=== PATIENT | female | born 1940 | race Caucasian/White ===

== ENCOUNTER → 2018-06-19 08:55 | Outpatient (REF) | payer MEDICARE, SELFPAY ==
[2018-06-19 12:32] LABS: HCT 42.6 % (36.0-46.0); HGB 14.2 g/dL (12.0-15.5); Mean Corp. HGB Concentration 33.3 g/dL (32.0-36.0); Mean Corpuscular Hemoglobin 30.5 pg (27.0-33.0); Mean Corpuscular Volume 91.4 fL (80-95); Mean Platelet Volume 11.3 fL (8.0-11.0); Platelet Count 159 x1000/uL (130-400); RBC 4.66 m/cumm (4.00-5.20); RBC Distribution Width 14.6 % (11.7-14.6); White Blood Cell Count 5.68 k/cumm (4.4-10.8)
[2018-06-19 12:52] LABS: ALT 18 U/L (12-78); AST 15 U/L (15-37); Albumin 3.5 g/dL (3.4-5.0); Alkaline Phosphatase 98 U/L (46-116); Anion Gap 8.6 mmol/L (3-11); BUN 18 mg/dL (7-18); Bilirubin, Total 1.8 mg/dL (0.2-1.0); CO2 28.4 mmol/L (21.0-32.0); CREATININE 0.76 mg/dL (0.55-1.02); Calcium 8.6 mg/dL (8.5-10.1); Chloride 103 mmol/L (98-107); Cholesterol 207 mg/dL (50-200); Glucose 93 mg/dL (70-100); HDL Cholesterol 63 mg/dL (40-60); LDL CHOLESTEROL 136 mg/dL (<100); Potassium 3.9 mmol/L (3.5-5.1); Sodium 140 mmol/L (136-145); Triglyceride 70 mg/dL (30-150)
[2018-06-20 20:19] LABS: TSH (W/Ref FT4) 2.02 uIU/mL (0.358-3.74)
== END ==
LOC: NCHCN 08:55
PROVIDERS: PCP Family Medicine; Visit Provider Family Medicine
DX: I10 Essential (primary) hypertension (principal); R40.0 Somnolence; J45.909 Unspecified asthma, uncomplicated; K21.9 Gastro-esophageal reflux disease without esophagitis; E03.9 Hypothyroidism, unspecified
CPT/HCPCS: 80053; 80061; 83721; 85027; 84443

== ENCOUNTER 2018-09-30 12:53 | Outpatient (REF) | payer MEDICARE, SELFPAY ==
[2018-09-30 13:37] LABS: ALT 16 U/L (12-78); AST 14 U/L (15-37); Albumin 3.6 g/dL (3.4-5.0); Alkaline Phosphatase 95 U/L (46-116); Anion Gap 7.1 mmol/L (3-11); BUN 18 mg/dL (7-18); Bilirubin, Total 1.8 mg/dL (0.2-1.0); CO2 31.9 mmol/L (21.0-32.0); CREATININE 0.76 mg/dL (0.55-1.02); Calcium 9.5 mg/dL (8.5-10.1); Chloride 103 mmol/L (98-107); Glucose 102 mg/dL (70-100); Potassium 4.1 mmol/L (3.5-5.1); Sodium 142 mmol/L (136-145); Total Protein 6.4 g/dL (6.4-8.2)
== END 2018-09-30 13:13 ==
LOC: NCHCN 12:53
PROVIDERS: PCP Family Medicine; Visit Provider Family Medicine
DX: L57.0 Actinic keratosis (principal); R41.3 Other amnesia; I10 Essential (primary) hypertension; Z13.820 Encounter for screening for osteoporosis
CPT/HCPCS: 80053

== ENCOUNTER 2018-12-03 00:25 | Outpatient (CLI) | payer MEDICARE, SELFPAY ==
--- NOTE | 2018-12-03 02:30 | DI.DEXA_ITS ---
SYMPTOM/DIAGNOSIS: OSTEOPENIA, M85.88, SCREENING FOR OSTEOPOROSIS, Z78 IN POSTMENOPAUSAL WOMAN DEXA SCAN: The MIGUEL A image shows no evidence of compression fractures. The bone mineral density measurements of the lumbar spine correspond to a total T score of -1.1, in adan normal range. This is a 9.8% increase when compared with 2009 and a 4.4% increase when compared with 2005. The bone mineral density measurements of the left hip correspond to a total T score of -2.0 and a femoral neck T score of - 1.8, in the osteopenic range. This is a 4.8% decrease when compared with 2009. The bone mineral density measurements of the left forearm correspond to a total T score of -2.1, in the osteopenic range. The forearm was not analyzed on the previous exams. IMPRESSION: Normal bone mineral density with increase when compared with previous exams. The findings could be in part secondary to degenerative disc changes. Mild osteopenia of the left hip with mild decrease. Osteopenia of the forearm.
== END 2018-12-03 00:45 ==
PROVIDERS: PCP Family Medicine; Visit Provider Family Medicine
DX: M85.88 Other specified disorders of bone density and structure, other site (principal); Z78.0 Asymptomatic menopausal state
CPT/HCPCS: 77080

== ENCOUNTER 2019-01-21 01:10 | Outpatient (CLI) | payer MEDICARE, SELFPAY ==
--- NOTE | 2019-01-21 14:07 | DI.COMBO_ITS ---
SYMPTOM/DIAGNOSIS: LT BREAST LUMP, N63.0, F/U MAMMO, R92.8 MAMMOGRAMS AND LEFT BREAST ULTRASOUND: Mammograms were interpreted according to the usual protocol including computer analysis with CAD system, tomosynthesis and C view imaging. Comparison is made with previous mammograms and ultrasound. The breasts are composed of heterogeneously dense fibroglandular tissue. Breast density, Category C. A marker was placed in the lateral left breast in the area of the palpable abnormality. A region of fatty density is seen corresponding to the palpable abnormality on the mammogram. There are no suspicious masses or suspicious calcifications or changes from previous exams. Left breast ultrasound shows an ovoid, 4.5 by 1.2 by 2.8 cm. fatty echogenicity area corresponding to the palpable abnormality. No cysts or suspicious masses are seen. IMPRESSION: Category 2, negative mammogram and left breast ultrasound with benign findings of fatty tissue corresponding to the palpable abnormality in the lateral aspect of the breast. Yearly screening mammography is recommended. SA ASSESSMENT OF FINDINGS: Negative with benign findings. Category 2. Patient will receive a letter notifying them of these results. Bi-RADS category C. The breasts are heterogeneously dense, which may obscure small masses.
== END 2019-01-21 01:30 ==
PROVIDERS: PCP Family Medicine; Visit Provider Family Medicine
DX: N63.20 Unspecified lump in the left breast, unspecified quadrant (principal); R92.8 Other abnormal and inconclusive findings on diagnostic imaging of breast; N60.82 Other benign mammary dysplasias of left breast
CPT/HCPCS: 76642; 77062; 77066; G0279

== ENCOUNTER 2019-02-20 22:09 | Emergency (ER) | payer MEDICARE, SELFPAY ==
[2019-02-20] VITALS (12 sets, daily range): BP systolic 163–234; BP diastolic 74–107; PULSE 69–86; RESP 15–22; TEMP 37.1; O2SAT 94–97
--- NOTE | 2019-02-20 22:29 | ED.GENADUL_ITS ---
Discharge Plan Disposition Patient Disposition: HOME Condition: Stable Discharge Details Chief Complaint: Chest Pain Clinical Impression: Left-sided chest pain Primary Care Provider: Roseann Sainz ED Provider: Carlos Felix Home Meds and New Rx's Prescriptions: New oxycodone 5 mg tablet 5 mg PO DAILY PRN (Reason: pain) Qty: 12 RF: 0 acyclovir 800 mg tablet 800 mg PO Q4H 7 Days Qty: 42 RF: 0 No Action latanoprost 2.5 ML drops 1 drp OU HS RF: 0 Simbrinza 8 ML drops,suspension 1 drp OD BID RF: 0 citalopram [Celexa] 20 MG tablet 20 mg PO HS Qty: 90 RF: 12 losartan 100 MG tablet 100 mg PO DAILY Qty: 90 RF: 12 clonazepam 0.5 MG tablet 0.5 tab PO BID PRNQty: 180 RF: 5 fluticasone propionate 16 GM spray,suspension 2 spr NS DAILY Qty: 1 RF: 1 levothyroxine 75 MCG tablet 75 mcg PO DAILY Qty: 90 RF: 12 dorzolamide [Trusopt] 10 ML drops 1 drp OD BID RF: 0 timolol maleate 0.5 % Drops 1 drp ophthalmic (eye) BID RF: 0 Discharge Instructions Instructions: Chest Pain (ED) Additional Instructions: Your lab work and cat scan did not show any emergent findings. You did have some inflammation of the esophagus on the cat scan, you should make your primary care provider aware of the cat scan findings when you follow up in case you need additional outpatient testing. You should also have your blood pressure rechecked at this time as it was elevated while you were here Where you were having pain was a small area of redness. This could be from early shingles so we are starting you on treatment for this IF you have severe worsening pain or difficulty breathing, or new pain such as severe abdominal pain return to the emergency department Medical Decision Making 78 yo female with no known cardiac disease comes in with left sided chest pain and back pain since 1pm or so today. She denies any trauma or falls. She denies fevers, chills. She is in no distress on exam speaking in full sentences. Does have pain with palpation to the left chest and describes the past in the t9 dermatome. She has clear lungs, no evidnece of dvt on exam and no pitting edema. She denies pain with exertion. She is a former smoker. She has a heart score of 3 based on age and risk factors, will obtain troponin, ekg unchanged from prior. No tachycardia or hypoxia and no evidence of dvt so doubt PE. Will obtain CTA given the chest and back pain to eval for dissection The pain is in a dermatome but no rash, could be eraly shingles but will evaluate for more life threatening pathology pt remains stable, labs and imaging show no acute findings, has nonacute findings she was informed of and advised to f/u with pcp for. Does have small perciardial effusion vs thickening of pericardium, clinical hx doesn't fit with pericarditis. She has point tenderness in the t9 dermatome and now hasa 3x4cm maculopapular rash in the mid axillary line. No vesicles. Unclear if this is early shingles but seems likely, has no abdominal tenderness on exam. Do not feel further imaging or lab work inidcated, advised f/u wtih pcp and return precautions given Differential Diagnosis acs, dissection, ptx, pe, chest wall strain Medical Records Medical records reviewed: Yes I reviewed the patient's medical records. Imaging Data Radiologic Study: Attestation: I personally reviewed and interpreted this imaging study as follows: Imaging: CT Scan Radiologist's impression: IMPRESSION: 1. There is heterogeneous attenuation of the pulmonary parenchyma, consistent with air trapping from underlying small airways disease. 2. The aorta demonstrates mild atherosclerotic calcification.No evidence of aortic dissection or aneurysmal dilatation. 3. There is no evidence of filling defects within the pulmonary arterial circulation to suggest pulmonary embolism. 4. Tiny pericardial effusion versus pericardial thickening. 5. The distal esophagus appears thickened. Consider infiltration versus inflammatory changes. Lab Data Lab results reviewed: Yes I reviewed the patient's lab results. ECG Data Attestation: I personally reviewed and interpreted this ECG (s) as follows: Prior ECG tracings: available for review Interpretation: sinus rhythm, rate of 71, pr 136, no acute st t wave ischemic findings 2nd ekg shows no significant changes from first , sinus rhythm, rate of 77, pr 140 HPI General Mode of arrival: ambulatory . Date/Time Provider Initiated Documentation: 02/20/19 22:17 . Limitations to Documentation: no limitations . Information obtained by: patient . History of Present Illness 78 year old F presents to the emergency department with the chief complaint of left sided chest pain , described as moderate, with intensity rated at 5. Quality is described as aching, and is localized to the chest. Patient started experiencing this hour(s) (7) and it has been constant. No relieving factors improve symptom(s), No exacerbating factors reported . Patient notes other (back pain). Patient did receive the following treatments prior to arrival, none Related Data Home Medications Medication Instructions Recorded Confirmed latanoprost 1 drp OU HS drp 01/27/13 02/20/19 Simbrinza 1 drp OD BID 01/06/16 02/20/19 dorzolamide [Trusopt 2%] 1 drp OD BID 08/29/16 02/20/19 citalopram [Celexa] 20 mg PO HS #90 tab-cap 06/11/17 02/20/19 losartan 100 mg PO DAILY #90 tab-cap 07/24/17 02/20/19 clonazepam 0.5 tab PO BID PRN #180 tab-cap 10/08/17 02/20/19 fluticasone propionate 2 spr NS DAILY #1 inh 10/18/17 02/20/19 levothyroxine 75 mcg PO DAILY #90 tab-cap 11/06/17 02/20/19 timolol maleate 1 drp OPHTHALMIC (EYE) BID 02/20/19 02/20/19 acyclovir 800 mg PO Q4H 7 Days #42 tab 02/21/19 oxycodone 5 mg PO DAILY PRN #12 tab 02/21/19 Previous Rx's Medication Instructions Recorded fluticasone propionate 2 spr NS DAILY #1 inh 10/18/17 levothyroxine 75 mcg PO DAILY #90 tab-cap 11/06/17 acyclovir 800 mg PO Q4H 7 Days #42 tab 02/21/19 oxycodone 5 mg PO DAILY PRN #12 tab 02/21/19 Allergies Allergy/AdvReac Type Severity Reaction Status Date / Time Penicillins Allergy Severe Anaphalaxis Unverified 02/28/18 10:25 codeine AdvReac Hallucinati Unverified 02/28/18 10:25 ons lisinopril AdvReac Cough Unverified 02/28/18 10:25 morphine AdvReac pt doesn't Unverified 02/28/18 10:25 tolerate well Review of Systems Review of Systems All systems reviewed & are unremarkable except as noted in HPI and below Constitutional Denies chills, Denies fever(s) and Denies weakness Respiratory Denies cough Gastrointestinal Denies abdominal pain, Denies nausea and Denies vomiting Neurologic Denies weakness PFSH Medical History Anxiety Asthma GERD (gastroesophageal reflux disease) Hyperlipidemia Hypertension Hypothyroidism Surgical History Biopsy of breast (~1999) Cholecystectomy EGD - MAC (~2004) Fracture, Open Treatment (~12/2006) Hysterectomy, Laproscopic (~1989) Oophrectomy, Both Repair of inguinal hernia Family History Mother Essential hypertension Personal history of malignant neoplasm Father Depression Heart disease Sister Diabetes Essential hypertension Alzheimer disease Asthma Grandfather No problems noted. Grandfather Asthma Grandmother No problems noted. Grandmother No problems noted. Son No problems noted. Daughter Neoplasm Daughter Depression Social History Smoking/Tobacco Use Status: Former Tobacco Use Drug use: Never Do you feel safe at home: Yes Do you feel safe in your relationship?: Yes Exam Const General: no acute distress Orientation: alert HENMT Head: normal to inspection Ears: external ears normal General nose exam: external nose normal Mouth: moist mucous membranes Eyes General: appearance normal, both eyes and all related structures Neck Neck: normal visual inspection Chest Chest: normal inspection of the chest Resp Effort & Inspection: normal respiratory effort and able to speak in complete sentences Cardio Rate: regular rate Skin General skin exam: no rashes or lesions noted Neuro General: alert and oriented x3 Extrem General: normal to inspection Psych Mental Status: mental status grossly normal
[2019-02-20 22:41] LABS: Abs Immature Grans 0.02 k/cumm (0.0-0.09); Absolute Basophil Count 0.04 k/cumm (0.0-0.2); Absolute Eosinophil Count 0.29 k/cumm (0.0-0.7); Absolute Lymphocyte Count 1.99 k/cumm (1.2-3.4); Absolute Monocyte Count 0.74 k/cumm (0.11-0.7); Absolute Neutrophil Count 5.97 k/cumm (1.2-6.7); Basophils % 0.4; Eosinophils % 3.2; HCT 43.8 % (36.0-46.0); HGB 14.6 g/dL (12.0-15.5); Immature Grans % 0.2; Mean Corp. HGB Concentration 33.3 g/dL (32.0-36.0); Mean Corpuscular Hemoglobin 30.4 pg (27.0-33.0); Mean Corpuscular Volume 91.3 fL (80-95); Mean Platelet Volume 10.6 fL (8.0-11.0); Monocytes % 8.2; Platelet Count 154 x1000/uL (130-400); RBC Distribution Width 14.8 % (11.7-14.6); White Blood Cell Count 9.05 k/cumm (4.4-10.8)
[2019-02-20] MEDS: Normal Saline Flush 10 ML SYR IVP (22:41)
[2019-02-20] MEDS: Aspirin 81 MG CHEW 324 MG CH (22:41)
[2019-02-20 22:56] LABS: INR 0.9 (0.9-1.1); PTT Activated 22.2 sec (21.0-31.4); Prothrombin Time 9.4 sec (9.3-11.0)
[2019-02-20 22:57] LABS: ALT 16 U/L (12-78); AST 12 U/L (15-37); Albumin 3.5 g/dL (3.4-5.0); Alkaline Phosphatase 111 U/L (46-116); Bilirubin, Direct 0.21 mg/dL (0.00-0.20); Bilirubin, Total 1.1 mg/dL (0.2-1.0); Lipase 148 U/L (73-393); Total Protein 6.8 g/dL (6.4-8.2)
[2019-02-20 22:58] LABS: Troponin I < 0.02 ng/mL (0.00-0.06)
--- NOTE | 2019-02-20 23:15 | DI.CT_ITS ---
SYMPTOM/DIAGNOSIS: CHEST AND BACK PAIN, ? DISSECTION CTA CHEST: CT angiography was performed with multi slice acquisition and multi planar and 3D reconstruction. CT angiography of the chest was performed with a bolus infusion of 100 cc's of Omnipaque 350. Images obtained through the upper abdomen show prior cholecystectomy with unremarkable appearance of visualized portions of liver, spleen, pancreas, adrenals and kidneys. There is atheromatous calcification of the aorta. No aortic dissection or aneurysm. Major branches appear patent in the chest and upper abdomen. No evidence of pulmonary embolic disease. No mediastinal or hilar adenopathy. Lungs are clear with probable diffuse centrilobular emphysema. Trace left pleural effusion noted. Trace pericardial effusion versus pericardial thickening. Minimal left basilar pulmonary scarring noted. Question mild thickening of the wall of the distal esophagus. Please correlate clinically, endoscopic evaluation could be obtained if clinically indicated. CONCLUSION: No evidence of acute aortic dissection or aneurysm. No pulmonary embolic disease. Additional findings as noted above.
[2019-02-20] MEDS: Omnipaque 350 MG/ML 100 ML BTL IJ (23:21)
[2019-02-20] MEDS: oxyCODONE 5 MG TAB PO (23:45)
[2019-02-21] VITALS: PULSE 73; RESP 15; O2SAT 96
[2019-02-21 00:01] VITALS: BP 205/79; PULSE 71; PULSE 74; RESP 16; O2SAT 96
[2019-02-21 00:04] LABS: Troponin I < 0.02 ng/mL (0.00-0.06)
--- NOTE | 2019-02-21 00:09 | DI.VRAD_ITS ---
EXAM: CT Angiography Chest With Contrast EXAM DATE/TIME: 02/20/2019 10:25 PM CLINICAL HISTORY: 78 years old, female; Pain; Chest pain and other: Chest and back; Type not specified; Additional info: ? Dissection TECHNIQUE: Imaging protocol: Axial computed tomographic angiography images of the chest with intravenous contrast using CT angiography protocol. 3D rendering: MIP reconstructed images were created and reviewed. Radiation optimization: All CT scans at this facility use at least one of these dose optimization techniques: automated exposure control; mA and/or kV adjustment per patient size (includes targeted exams where dose is matched to clinical indication); or iterative reconstruction. Contrast material: [id number] Contrast volume: 100 ml Contrast route: iv COMPARISON: CR CHEST 2 VIEWS PA,LAT 05/01/2017 2:53 PM FINDINGS: Pulmonary arteries: There is no evidence of filling defects within the pulmonary arterial circulation to suggest pulmonary embolism. The pulmonary arteries are not enlarged. Aorta: The aorta demonstrates mild atherosclerotic calcification.No evidence of aortic dissection or aneurysmal dilatation. Lungs: There is heterogeneous attenuation of the pulmonary parenchyma, consistent with air trapping from underlying small airways disease. Left lobe atelectasis versus scarring. Possible small diaphragmatic hernia seen at the left costophrenic angle. Pleural space: There is no evidence of pneumothorax. There are no pleural effusions present. Heart: There is moderate left ventricular hypertrophy. Tiny pericardial effusion versus pericardial thickening. Mediastinum: A small hiatal hernia is present. The distal esophagus appears thickened. Consider infiltration versus inflammatory changes. Upper abdomen: The visualized abdominal structures are unremarkable. Lymph nodes: There is no evidence of lymphadenopathy. Bones/joints: The skeletal structures and soft tissues show no evidence of fracture or other acute processes. Soft tissues: The soft tissues of the extrathoracic region are unremarkable. IMPRESSION: 1. There is heterogeneous attenuation of the pulmonary parenchyma, consistent with air trapping from underlying small airways disease. 2. The aorta demonstrates mild atherosclerotic calcification.No evidence of aortic dissection or aneurysmal dilatation. 3. There is no evidence of filling defects within the pulmonary arterial circulation to suggest pulmonary embolism. 4. Tiny pericardial effusion versus pericardial thickening. 5. The distal esophagus appears thickened. Consider infiltration versus inflammatory changes. Dictated and Authenticated by: Niko Mak MD. Ordering:UMU Gonzalez MD
[2019-02-21 00:10] VITALS: PULSE 72; RESP 14; O2SAT 94
[2019-02-21 00:16] VITALS: BP 193/84; PULSE 71; PULSE 75; RESP 15; O2SAT 94
[2019-02-21] MEDS: Acyclovir 400 MG TAB 800 MG PO (00:35)
[2019-02-21] MEDS: oxyCODONE 5 MG TAB PO (00:46)
[2019-02-21 00:48] VITALS: BP 205/79; PULSE 71; RESP 14; O2SAT 94
== END 2019-02-21 00:45 | disposition home or self-care (01) ==
PROVIDERS: Emergency Provider Emergency Medicine; PCP Family Medicine
DX: R07.89 Other chest pain (principal); M54.9 Dorsalgia, unspecified; I10 Essential (primary) hypertension
CPT/HCPCS: 36415; 71275; 80076; 83690; 93005; 96374; 99285; 83735; 84484; 85025; 85610; 85730; 93010; J3490

== ENCOUNTER → 2019-03-07 08:59 | Outpatient (BNVA) | payer MEDICARE, SELFPAY | PROVIDERS: PCP Family Medicine; Referring Provider Family Medicine; Visit Provider Physical Therapy Assistant | DX: R93.89 Abnormal findings on diagnostic imaging of other specified body structures (principal); I10 Essential (primary) hypertension; Z12.11 Encounter for screening for malignant neoplasm of colon; Z86.010 Personal history of colon polyps | CPT/HCPCS: 99212; 99213 ==

== ENCOUNTER 2019-04-08 06:10 | Day surgery (SDC) | payer MEDICARE, SELFPAY ==
[2019-04-08 06:36] VITALS: BP 179/96; PULSE 93; RESP 16; TEMP 36.2; O2SAT 96
[2019-04-08] MEDS: Lactated Ringers 1,000 ML 80 ML IV (06:42)
--- NOTE | 2019-04-08 06:43 | W.COLOREPORT ---
Date of service: 04/08/19 Time of Service: 08:32 Colonoscopy Report Date of procedure: 04/08/19 Pre-op diagnosis general: Hx of polyps, abnormal CT scan Post-op diagnosis procedure note: other (Gastritis, esophagitis with schatzki's ring, colorectal polyps, internal hemorrhoids, diverticulosis) Procedure: 1. EGD with bx 2. Colonoscopy with polypectomy Surgeon: Montserrat Candelario Anesthesia proc note operative: other (General/ ASA2 /Miranda Louis, CONTENT MANAGEMENT SPECIALIST ) Estimated blood loss (mL): 5 Pathology: other (Antrum bx, gastric polyp bx, GE junction bx, rectal polyp x5) Complications: None Disposition: same day Indications: Mrs. Castle is a pleasant 78-year-old female who was seen in the office for an EGD and colonoscopy. Her last colonoscopy was in 2012 and she was noted to have a tubular adenoma. It was done at [facility]. She was seen in the emergency department for some chest/back pain and a CT scan of her chest was done. The CT scan showed some thickening around the distal esophagus. The patient denies any reflux or heartburn type symptoms. Her last EGD was in 2008 which was pretty unremarkable. She has not been on any PPIs or H2 blockers in the past. Risks, benefits and complications have been reviewed. Complications include but are not limited to bleeding, pain, perforation, missed small lesion/polyp, sore throat, aspiration and adverse reaction to the medications. Questions were entertained and answered to their satisfaction and they wished to proceed. No guarantees were given or implied. Prep: Miralax/Dulcolax Procedure Start Time: 08:32 Procedure End Time: 09:26 Retraction Time: 24 minutes Findings: EGD- gastric polyps most likely from chronic inflammation. There was some old blood noted. Inflammation of the stomach and esophagus with a schatzki's ring Colonoscopy- mild diverticulosis, Grade 1 internal hemorrhoids, 5 rectal polyps (benign appearing) Procedure Description: After informed consent was obtained the patient was take to the procedure room and placed in a supine position. Monitors were applied and a time out was done. The patients name, date of , procedure type, allergies to medications and metal in their body was reviewed. A bite block was placed and the patient was sedated. Once sedated and comfortable the gastroscope was advanced through the oropharynx which was grossly normal into the esophagus. The proximal and mid-esophagus were normal. In the distal esophagus there was inflammation noted and there was a schatzki's ring noted. The scope was advanced into the stomach and through the pylorus into the 3rd portion of the duodenum. The duodenum was noted to be normal. The scope was retracted back into the stomach and biopsies were done in the antrum to rule out H. pylori. There were no ulcers. There was moderate inflammation in the antrum and body. Multiple fundic polyps were noted and 2 were biopsied. The scope was retro-flexed. The cardia and fundus were noted to be normal. There was no hiatal hernia noted. The scope was retracted back into the esophagus and biopsies were done of the GE junction to rule out Nicholas's. The Z line was regular. The GE junction was at 32 cm. There was a Schatzki's ring noted. While the patient was still sedated they were placed in a left decubitous position. A rectal exam was done. External exam was normal. Internal exam revealed a normal sphincter tone and no palpable masses. The scope was then introduced and retro-flexed. Grade 1 internal hemorrhoids were identified. The scope was then advanced to the cecum with some difficulty. Pressure had to be applied to the abdomen in order to advance the scope to the cecum. The TI and appendiceal orifice were identified. The prep was good. The scope was then slowly retracted over 24 minutes back into the rectum. 5 small sessile polyps were removed with cold forceps in the rectum. The scope was removed and the patient was woken up and taken back to Same day surgery in stable condition. The patient tolerated the procedure well and there were no immediate complications. Follow up: Will start Omeprazole 20 mg daily. Follow up with PCP in 2-3 weeks. Next colonoscopy will depends on final pathology results as well as Patients health.
--- NOTE | 2019-04-08 06:46 | W.PM.DSUDISC ---
Discharge Plan Disposition Patient Disposition: HOME Condition: Good Discharge Details Reason For Visit: Abnormal CT scan, Hx of polyps Attending Provider: Montserrat Candelario Primary Care Provider: Roseann Sainz Home Meds and New Rx's Prescriptions: New omeprazole 20 mg capsule,delayed release(DR/EC) 20 mg PO DAILY Qty: 30 RF: 3 Continued latanoprost 2.5 ML drops 1 drp OU HS RF: 0 Simbrinza 8 ML drops,suspension 1 drp OD BID RF: 0 citalopram [Celexa] 20 MG tablet 20 mg PO HS Qty: 90 RF: 12 losartan 100 MG tablet 100 mg PO DAILY Qty: 90 RF: 12 clonazepam 0.5 MG tablet 0.5 tab PO BID PRNQty: 180 RF: 5 levothyroxine 75 MCG tablet 75 mcg PO DAILY Qty: 90 RF: 12 dorzolamide [Trusopt] 10 ML drops 1 drp OD BID RF: 0 timolol maleate 0.5 % Drops 1 drp ophthalmic (eye) BID RF: 0 donepezil 5 mg Tablet 5 mg PO DAILY RF: 0 Discontinued polyethylene glycol 3350 17 gram/dose powder 238 g PO ONCE Qty: 238 RF: 0 bisacodyl [Dulcolax (bisacodyl)] 5 mg tablet,delayed release (DR/EC) 5 mg PO ONCE Qty: 4 RF: 0 Discharge Instructions Instructions: Gastritis (DC), Colonoscopy (DC), Diet for Stomach Ulcers and Gastritis (GEN), Upper Endoscopy (DC), Esophagitis (DC) Additional Instructions: Findings: Inflammation of the stomach and esophagus with scarring in the esophagus Gastric polyps- benign most likely secondary to chronic inflammation Benign appearing colon polyps Diverticulosis Internal hemorrhoids Follow up:follow up with your Primary Care Physician in 2-3 weeks Please call if you develop: fevers >101.5 Nausea or Vomiting Abdominal pain that is not transient DAY SURGERY UNIT POST COLONOSCOPY INSTRUCTIONS 1. Because there will be medication in your system for the next 24 hours, you may feel a little sleepy. Your coordination will be affected. Therefore: a. Do not drive or operate dangerous equipment for 24 hours. b. Do not drink alcohol beverages for 24 hours (not even beer). c. Plan to go home and rest for the day. 2. Generally there are no restrictions on your activity after a day or so has gone by, but you may feel a bit fatigued for a few days. 3 After you arrive home you may have a light meal and return to a normal diet as you can tolerate it without feeling sick to your stomach. 4. After surgery, you may feel pain or discomfort. This should be only transient, but if it persists please contact your doctor. 5. If there are any questions regarding the findings of your procedure, please feel free to contact your doctor. 6. If you are unable to contact your doctor with a problem, contact the hospital at [phone]. 7. Continue all your regular medications unless directed otherwise. I understand the above instructions and have no questions. Signature of Patient or Responsible Adult Escort Date/Time Name of Responsible Adult Escort Signature of Nurse Date/Time Referrals: Roseann Sainz [Primary Care Provider] - (2-3 weeks) Activity:: Activity as Tolerated Diet:: As Tolerated Discharge Orders Discharge Orders: Discharge Order (Routine); Ordered 04/08/19 Ordered By: Montserrat Candelario DS: Diagnosis Discharge Diagnosis (1) S/P colonoscopy: Status: Acute (2) History of esophagogastroduodenoscopy (EGD): Status: Chronic (3) Colorectal polyps: Status: Acute (4) Schatzki's ring of distal esophagus: Status: Acute (5) Esophagitis: Status: Acute (6) Gastritis: Status: Acute
--- NOTE | 2019-04-08 07:22 | HPE_ITS ---
Date of service: 04/08/19 Time of Service: :22 Assessment and Plan (1) Esophageal thickening: Current visit: No Status: Acute P\\ EGd under sedation Risks, benefits and complications have been reviewed. Complications include but are not limited to bleeding, pain, perforation, sore throat, aspiration, and adverse reaction to the medications. Questions were entertained and answered to their satisfaction and they wished to proceed. No guarantees were given or implied. (2) Encounter for screening colonoscopy: Current visit: No Status: Acute P\\ Colonoscopy under sedation Risks, benefits and complications have been reviewed. Complications include but are not limited to bleeding, pain, perforation, missed small lesion/polyp, sore throat, aspiration and adverse reaction to the medications. Questions were entertained and answered to their satisfaction and they wished to proceed. No guarantees were given or implied. History of Present Illness Narrative: 77 y/o female with history of HTN and hypothyroidism presents for colonoscopy screening pre-op. His last screening was in 2012 at [facility], which was remarkable for tubular adenoma, with 5 yr f/u recommended. She denies a family history of colon cancer. She denies any changes in bowel habits including bloody or black tarry stools, abdominal pain, diarrhea or constipation. She denies constitutional symptoms. Denies use of marijuana or any other recreational or illegal drugs. She was seen in the ED on 02/21/19 for complaints of Chest and Back pain- CT scan showed mild thickening of the wall of the distal esophagus, no evidence of acute aortic dissection or aneurysm. No pulmonary embolic disease. Last EGD was in 2008 which showed mild chronic gastritis, mild reflux esophagitis. She has no been on any H2 blockers or PPI for this. Her chest pain was non-cardiac and has since resolved. She denies chest pain, palpitations, dyspnea or dyspnea with exertion. She denies prior history or family history of adverse reactions or complications with anesthesia. There have been no changes in her health since she was seen in the office [facility] Medical History Dysthymic disorder (Acute) Lumbar radiculopathy (Acute) Neoplasm of skin (Acute) Glaucoma (Chronic) Anxiety Asthma GERD (gastroesophageal reflux disease) Hyperlipidemia Hypertension Hypothyroidism Surgical History S/P colonoscopy (Acute ~04/08/19) Biopsy of breast (~1999) Cholecystectomy EGD - MAC (~2004) Fracture, Open Treatment (~12/2006) Hysterectomy, Laproscopic (~1989) Oophrectomy, Both Repair of inguinal hernia Family History Mother Essential hypertension Personal history of malignant neoplasm Father Depression Heart disease Sister Diabetes Essential hypertension Alzheimer disease Asthma Grandfather No problems noted. Grandfather Asthma Grandmother No problems noted. Grandmother No problems noted. Son No problems noted. Daughter Neoplasm Daughter Depression Social History Smoking/Tobacco Use Status: Former Tobacco Use Alcohol Intake: never Drug use: Never Substance use type: does not use Do you feel safe at home: Yes Do you feel safe in your relationship?: Yes Meds Home Medications Medication Instructions Recorded Confirmed Type latanoprost 1 drp OU HS drp 01/27/13 04/03/19 History Simbrinza 1 drp OD BID 01/06/16 04/03/19 History dorzolamide [Trusopt 2%] 1 drp OD BID 08/29/16 04/08/19 History citalopram [Celexa] 20 mg PO HS #90 tab-cap 06/11/17 04/03/19 History losartan 100 mg PO DAILY #90 tab-cap 07/24/17 04/03/19 History clonazepam 0.5 tab PO BID PRN #180 tab-cap 10/08/17 04/03/19 History levothyroxine 75 mcg PO DAILY #90 tab-cap 11/06/17 04/03/19 Rx timolol maleate 1 drp OPHTHALMIC (EYE) BID 02/20/19 04/03/19 History bisacodyl 5 mg tablet,delayed 5 mg PO ONCE #4 tab 03/07/19 04/08/19 Rx release polyethylene glycol 3350 17 238 g PO ONCE #238 gm 03/07/19 04/08/19 Rx gram/dose oral powder donepezil 5 mg PO DAILY 04/08/19 04/08/19 History Allergies Allergy/AdvReac Type Severity Reaction Status Date / Time Penicillins Allergy Severe Anaphalaxis Unverified 04/08/19 06:29 codeine AdvReac Hallucinati Unverified 04/08/19 06:29 ons lisinopril AdvReac Cough Unverified 04/08/19 06:29 morphine AdvReac pt doesn't Unverified 04/08/19 06:29 tolerate well Exam Resp Effort & Inspection: normal respiratory effort Auscultation: clear to auscultation bilaterally Cardio Rate: regular rate Rhythm: regular rhythm Results Last Vital Signs Temp 97.2 F L 04/08/19 06:36 Pulse 93 H 04/08/19 06:36 Resp 16 04/08/19 06:36 BP 179/96 H 04/08/19 06:36 Pulse Ox 96 04/08/19 06:36
--- NOTE | 2019-04-08 08:34 | STOM_PTH ---
PATIENT: Lucila Castle LOC: [facility] U#:[id number] AGE/SX: 78/F ROOM: RE04/08/[address]: Montserrat Candelario MD : [id number] BED: DIS: 04/08/2019 SPEC #: [id number] RECD: 04/08/19 12:45 STATUS: BEATRIZ RE #: [id number] SIDRA: 04/08/19 08:[address]: Montserrat Candelario DEPT: Surgical Specimen RECD BY: Rina Mcmanus ENTERED: 04/08/19 12:46 SP TYPE: STOMACH OTHR DR: Roseann Sainz Tissues: 1 - STOMACH BIOPSY 2 - STOMACH BIOPSY 3 - ESOPHAGUS BIOPSY 4 - BIOPSY BOWEL Procedures: GROSS AND MICRO LEVEL 4 Comments: [id number]
[2019-04-08 10:28] VITALS: BP 180/91; PULSE 65; RESP 16; TEMP 35.8; O2SAT 94
== END 2019-04-08 11:12 | disposition home or self-care (01) ==
PROVIDERS: PCP Family Medicine; Visit Provider Surgery
PROC: (CPT 45380; principal; 2019-04-08 08:15)
DX: Z12.11 Encounter for screening for malignant neoplasm of colon (principal); K62.1 Rectal polyp; K64.0 First degree hemorrhoids; K57.30 Diverticulosis of large intestine without perforation or abscess without bleeding; Z86.010 Personal history of colon polyps; R93.3 Abnormal findings on diagnostic imaging of other parts of digestive tract; K31.89 Other diseases of stomach and duodenum; K31.7 Polyp of stomach and duodenum; K22.2 Esophageal obstruction; I10 Essential (primary) hypertension
CPT/HCPCS: 45380; 43239; 88305; NC; J2405

== ENCOUNTER 2019-04-29 15:22 | Outpatient (REF) | payer MEDICARE, SELFPAY | END 2019-04-29 15:42 | LOC: NCHCN 15:22 | PROVIDERS: PCP Family Medicine; Visit Provider Specialist/Technologist Athletic Trainer | DX: R35.0 Frequency of micturition (principal) | CPT/HCPCS: 87086 ==

== ENCOUNTER 2019-08-18 12:02 | Outpatient (CLI) | payer MEDICARE, SELFPAY ==
--- NOTE | 2019-08-18 12:00 | DI.RAD_ITS ---
EXAM: XR CHEST 2V PA LATERAL CLINICAL HISTORY: COUGH,R05. TECHNIQUE: 2D digital imaging was performed. COMPARISON: CHEST 2 VIEWS PA,LAT from 05/01/2017 FINDINGS: LUNGS: Clear. No pleural abnormality seen. HEART: Normal. MEDIASTINUM: Normal. OTHER FINDINGS:Normal. Bones: Age appropriate degenerative changes are seen in the spine. There is a mild pectus excavatum deformity. IMPRESSION: No acute pulmonary findings.
== END 2019-08-18 12:22 ==
PROVIDERS: PCP Family Medicine; Visit Provider Nurse Practitioner Family
DX: R05 Cough (principal)
CPT/HCPCS: 71046

== ENCOUNTER 2020-01-04 01:47 | Emergency (ER) | payer MEDICARE, SELFPAY ==
[2020-01-04 01:50] VITALS: BP 192/88; PULSE 86; RESP 20; TEMP 36.8; O2SAT 94
--- NOTE | 2020-01-04 02:11 | W.ED.GENAD ---
Discharge Plan Disposition Patient Disposition: HOME Condition: Stable Discharge Details Chief Complaint: Orthopedic Clinical Impression: Bursitis Primary Care Provider: Roseann Sainz ED Provider: Carlos Felix Home Meds and New Rx's Prescriptions: New prednisone 20 mg tablet 60 mg PO DAILY 4 Days Qty: 12 RF: 0 Continued latanoprost 2.5 ML drops 1 drp OU HS RF: 0 Simbrinza 8 ML drops,suspension 1 drp OD BID RF: 0 citalopram [Celexa] 20 MG tablet 20 mg PO HS Qty: 90 RF: 12 clonazepam 0.5 MG tablet 0.5 tab PO BID PRNQty: 180 RF: 5 levothyroxine 75 MCG tablet 75 mcg PO DAILY Qty: 90 RF: 12 dorzolamide [Trusopt] 10 ML drops 1 drp OD BID RF: 0 timolol maleate 0.5 % Drops 1 drp ophthalmic (eye) BID RF: 0 omeprazole 20 mg capsule,delayed release(DR/EC) 20 mg PO DAILY Qty: 30 RF: 3 diclofenac sodium 50 mg Tablet,Delayed Release (Dr/Ec) 50 mg PO BID RF: 0 Discharge Instructions Instructions: Hip Bursitis (ED) Additional Instructions: take 1mg of your clonazepam before bed if you have fevers, inability to urinate or new pain such as abdominal pain return to the emergency department Medical Decision Making 79 yo female with hx of htn, gerd, who comes in with left posterior hip and back pain for 2 months. Denies any falls, trauma, fevers, urinary retention, weakness, vomit, abdominal pain. She localizes the pain to the left posterior hip, bearing weight without pain and no limp and full rom of the hip. HAs n oerythema or warmth of the joint. NO leg swelling. NO saddle anesthesia, normal reflexes. Where her pain is I suspect trochanteric bursitis. No midline back pain. Given lack of trauma do not feel xrays indicated as unlikely fracture/dislocation. NO findings to suggest sea or cauda equina. No infectious symptoms or night sweats or other symptoms to suggest osteo or septic joint. Will haveher try lidocaine patches and steroids, advised f/u with pcp and return precautions given Differential Diagnosis Differential Diagnosis: bursitis, strain, djd HPI General Mode of arrival: ambulatory. Date/Time Provider Initiated Documentation: 01/04/20 01:49. Limitations to Documentation: no limitations. Information obtained by: patient. History of Present Illness 79 year old F presents to the emergency department with the chief complaint of left posterior hip pain, described as moderate, and is localized to the back. Patient reports no radiation. Patient started experiencing this month(s) (2) and it has been constant. No relieving factors improve symptom(s), No exacerbating factors reported . Patient notes no other symptoms.. Related Data Home Medications Medication Instructions Recorded Confirmed latanoprost 1 drp OU HS drp 01/27/13 01/04/20 Simbrinza 1 drp OD BID 01/06/16 01/04/20 dorzolamide [Trusopt] 1 drp OD BID 08/29/16 01/04/20 citalopram [Celexa] 20 mg PO HS #90 tab-cap 06/11/17 01/04/20 clonazepam 0.5 tab PO BID PRN #180 tab-cap 10/08/17 01/04/20 levothyroxine 75 mcg PO DAILY #90 tab-cap 11/06/17 01/04/20 timolol maleate 1 drp OPHTHALMIC (EYE) BID 02/20/19 01/04/20 omeprazole 20 mg PO DAILY #30 cap 04/08/19 01/04/20 diclofenac sodium 50 mg PO BID 01/04/20 01/04/20 prednisone 60 mg PO DAILY 4 Days #12 tab 01/04/20 Previous Rx's Medication Instructions Recorded levothyroxine 75 mcg PO DAILY #90 tab-cap 11/06/17 omeprazole 20 mg PO DAILY #30 cap 04/08/19 prednisone 60 mg PO DAILY 4 Days #12 tab 01/04/20 Allergies Allergy/AdvReac Type Severity Reaction Status Date / Time Penicillins Allergy Severe Anaphalaxis Unverified 01/04/20 01:55 codeine AdvReac Hallucinati Unverified 01/04/20 01:55 ons lisinopril AdvReac Cough Unverified 01/04/20 01:55 morphine AdvReac pt doesn't Unverified 01/04/20 01:55 tolerate well General Stated Complaint: Orthopedic KATIUSKA: 3 Review of Systems All systems reviewed & are unremarkable except as noted in HPI and below Constitutional Constitutional: Denies chills, Denies fever(s) and Denies weakness Cardiovascular Cardiovascular: Denies chest pain and Denies dyspnea Respiratory Respiratory: Denies cough and Denies dyspnea Gastrointestinal Gastrointestinal: Denies abdominal pain, Denies nausea and Denies vomiting Musculoskeletal Musculoskeletal: Denies joint swelling Neurologic Neurologic: Denies weakness [facility] Medical History (Updated 01/04/20 @ 02:12 by Carlos Felix MD) Anxiety Asthma Colorectal polyps (Acute) Dysthymic disorder (Acute) Esophagitis (Acute) Gastritis (Acute) GERD (gastroesophageal reflux disease) Glaucoma (Chronic) Hyperlipidemia Hypertension Hypothyroidism Lumbar radiculopathy (Acute) Neoplasm of skin (Acute) Schatzki's ring of distal esophagus (Acute) Surgical History Biopsy of breast (~1999) Cholecystectomy 01/28/16 EGD - MAC (~2004) Fracture, Open Treatment (~12/2006) [facility];LEFT; TANGELA/FEMUR Hysterectomy, Laproscopic (~1989) COMPLETE Oophrectomy, Both Repair of inguinal hernia S/P colonoscopy (Acute ~04/08/19) 2013-Tubular adenoma Social History Smoking/Tobacco Use Status: Former Tobacco Use Alcohol Intake: never Drug use: Never Substance use type: does not use Do you feel safe at home: Yes Do you feel safe in your relationship?: Yes Exam Const General: no acute distress Orientation: alert HENMT Head: normal to inspection Ears: external ears normal General nose exam: external nose normal Mouth: moist mucous membranes Eyes General: appearance normal, both eyes and all related structures Neck Neck: normal visual inspection Resp Effort & Inspection: normal respiratory effort and able to speak in complete sentences Cardio Rate: regular rate Back/Spine/Pelvis Back: no CVA tenderness Skin General skin exam: no rashes or lesions noted Neuro General: alert and oriented x3 Extrem General: normal to inspection Psych Mental Status: mental status grossly normal Course Vital Signs Vital signs: Vital Signs Temperature 36.8 C 01/04/20 01:50 Pulse 86 01/04/20 01:50 Respiratory Rate 20 01/04/20 01:50 Blood Pressure 192/88 H 01/04/20 01:50 Pulse Oximetry 94 L 01/04/20 01:50 Temperature 36.8 C 01/04/20 01:50 Temperature Source Temporal Artery Scan 01/04/20 01:50 Pulse 86 01/04/20 01:50 Respiratory Rate 20 01/04/20 01:50 Blood Pressure 192/88 H 01/04/20 01:50 Blood Pressure Position Sitting 01/04/20 01:50 Pulse Oximetry 94 L 01/04/20 01:50 Oxygen Delivery Method Room Air 01/04/20 01:50 Oxygen Flow Rate 0 01/04/20 01:50 Pain Level 9 01/04/20 01:50
== END 2020-01-04 02:25 | disposition home or self-care (01) ==
PROVIDERS: Emergency Provider Emergency Medicine; PCP Family Medicine
DX: M70.62 Trochanteric bursitis, left hip (principal); I10 Essential (primary) hypertension
CPT/HCPCS: 99283

== ENCOUNTER 2020-01-06 06:59 | Outpatient (CLI) | payer MEDICARE, SELFPAY ==
--- NOTE | 2020-01-06 10:37 | DI.RAD_ITS ---
EXAM: XR LUMBAR SPINE COMPLETE INDICATION: LOW BACK PAIN, MILD LT M54.5. COMPARISON: LUMBAR SPINE COMPLETE from 04/15/2014 TECHNIQUE: 2D digital imaging was performed. FINDINGS: There is normal alignment of the lumbar spine. No spondylolysis or spondylolisthesis is present. Th ere are degenerative changes of the facets from L3-4 through L5-S1. Disc space narrowing and endplat e osteophytes are present throughout the lumbar spine. No acute fracture or subluxation is present. There are surgical clips in the right upper quadrant of the abdomen likely reflecting prior cholecys tectomy. Vascular calcifications are present. IMPRESSION: [id number]-[id number] degenerative changes in the lumbar spine.
== END 2020-01-06 07:19 ==
PROVIDERS: PCP Family Medicine; Visit Provider Family Medicine
DX: M54.5 Low back pain (principal); M51.37 Other intervertebral disc degeneration, lumbosacral region
CPT/HCPCS: 72110

== ENCOUNTER 2020-03-02 09:28 | Outpatient (REF) | payer MEDICARE, SELFPAY ==
[2020-03-02 20:30] LABS: ALT 15 U/L (14-59); AST 15 U/L (15-37); Albumin 3.8 g/dL (3.4-5.0); Alkaline Phosphatase 103 U/L (46-116); Anion Gap 4.5 mmol/L (3-11); BUN 17 mg/dL (7-18); CO2 35.5 mmol/L (21.0-32.0); CREATININE 0.77 mg/dL (0.55-1.02); Calcium 9.5 mg/dL (8.5-10.1); Calculated LDL 143 mg/dL (<100); Chloride 104 mmol/L (98-107); Cholesterol 214 mg/dL (<200); Glucose 102 mg/dL (74-106); HDL Cholesterol 55 mg/dL (40-60); Potassium 4.9 mmol/L (3.5-5.1); Sodium 144 mmol/L (136-145); TSH (W/Ref FT4) 1.64 uIU/mL (0.36-3.74); Total Protein 6.5 g/dL (6.4-8.2); Triglyceride 84 mg/dL (<150)
== END 2020-03-02 09:48 ==
LOC: NCHCN 09:28
PROVIDERS: PCP Family Medicine; Visit Provider Family Medicine
DX: I10 Essential (primary) hypertension (principal); E03.9 Hypothyroidism, unspecified
CPT/HCPCS: 80053; 80061; 84443

== ENCOUNTER 2021-07-21 16:49 | Outpatient (REF) | payer MEDICARE, SELFPAY ==
[2021-07-22 17:16] LABS: COVID-19 RT-PCR UVMMC Result Negative (Negative)
== END 2021-07-21 16:50 | disposition home or self-care (01) ==
LOC: NCHCN 16:49
PROVIDERS: PCP Family Medicine; Visit Provider Family Medicine
DX: Z20.822 Contact with and (suspected) exposure to COVID-19 (principal); J02.9 Acute pharyngitis, unspecified
CPT/HCPCS: U0003; U0005

== ENCOUNTER 2021-11-24 08:53 | Outpatient (REF) | payer MEDICARE, SELFPAY ==
[2021-11-24 16:02] LABS: ALT 16 U/L (14-59); AST 10 U/L (15-37); Albumin 3.6 g/dL (3.4-5.0); Alkaline Phosphatase 97 U/L (46-116); Anion Gap 4.3 mmol/L (3-11); BUN 20 mg/dL (7-18); Bilirubin, Total 1.7 mg/dL (0.2-1.0); CO2 35.7 mmol/L (21.0-32.0); CREATININE 0.7 mg/dL (0.55-1.02); Calcium 9.5 mg/dL (8.5-10.1); Calculated LDL 121 mg/dL (<100); Chloride 104 mmol/L (98-107); Cholesterol 201 mg/dL (<200); Glucose 95 mg/dL (74-106); HDL Cholesterol 67 mg/dL (40-60); Potassium 4.5 mmol/L (3.5-5.1); Sodium 144 mmol/L (136-145); Total Protein 6.2 g/dL (6.4-8.2); Triglyceride 69 mg/dL (<150)
== END 2021-11-24 08:54 | disposition home or self-care (01) ==
LOC: NCHCN 08:53
PROVIDERS: PCP Family Medicine; Visit Provider Family Medicine
DX: I10 Essential (primary) hypertension (principal); E03.9 Hypothyroidism, unspecified; Z00.00 Encounter for general adult medical examination without abnormal findings
CPT/HCPCS: 80053; 80061

== ENCOUNTER 2022-11-28 17:40 | Outpatient (REF) | payer MEDICARE, SELFPAY ==
[2022-11-28 15:01] LABS: Abs Immature Grans 0.02 10^3/uL (0.0-0.06); Absolute Basophil Count 0.06 10^3/uL (0.0-0.2); Absolute Eosinophil Count 0.13 10^3/uL (0.0-0.7); Absolute Monocyte Count 0.43 10^3/uL (0.1-0.8); Absolute Neutrophil Count 4.77 10^3/uL (1.2-6.7); Basophils % 0.8; Eosinophils % 1.7; HGB 17.2 g/dL (11.2-15.7); Immature Grans % 0.3; MCHC 34.4 % (32.0-36.0); MCV 87 fL (80-95); MPV 10.9 fL (8.0-11.0); Monocytes % 5.7; Neutrophils % 63.5; Platelet Count 222 10^3/uL (130-400); RBC 5.74 10^6/uL (3.93-5.22); RDW-SD 44.5 fL; WBC 7.51 10^3/uL (4.4-10.8)
[2022-11-28 15:48] LABS: ALT 14 U/L (14-59); AST 18 U/L (15-37); Albumin 4.1 g/dL (3.4-5.0); Alkaline Phosphatase 103 U/L (46-116); Anion Gap 6.1 mmol/L (3-11); BUN 18 mg/dL (7-18); Bilirubin, Total 3.3 mg/dL (0.2-1.0); CO2 35.9 mmol/L (21.0-32.0); CREATININE 0.9 mg/dL (0.55-1.02); Chloride 101 mmol/L (98-107); Estimated GFR 63.43 (mL/min/1.73m2); Glucose 129 mg/dL (74-106); Sodium 143 mmol/L (136-145); Total Protein 6.8 g/dL (6.4-8.2)
[2022-11-28 15:55] LABS: Potassium 2.9 mmol/L (3.5-5.1)
== END 2022-11-28 17:41 | disposition home or self-care (01) ==
LOC: NCHCN 17:40
PROVIDERS: PCP Family Medicine; Visit Provider Family Medicine
DX: F03.90 Unspecified dementia, unspecified severity, without behavioral disturbance, psychotic disturbance, mood disturbance, and anxiety (principal); I10 Essential (primary) hypertension; E03.9 Hypothyroidism, unspecified; Z00.00 Encounter for general adult medical examination without abnormal findings
CPT/HCPCS: 80053; 84443; 85025

== ENCOUNTER 2022-12-01 13:08 | Outpatient (REF) | payer MEDICARE, SELFPAY ==
[2022-12-01 15:46] LABS: Potassium 4.5 mmol/L (3.5-5.1)
== END 2022-12-01 13:09 | disposition home or self-care (01) ==
LOC: NCHCN 13:08
PROVIDERS: PCP Family Medicine; Visit Provider Family Medicine
DX: E87.6 Hypokalemia (principal)
CPT/HCPCS: 84132

== ENCOUNTER 2022-12-23 12:07 | Emergency (ER) | payer MEDICARE, SELFPAY ==
[2022-12-23 12:13] VITALS: BP 152/68; PULSE 69; RESP 16; O2SAT 95
--- NOTE | 2022-12-23 12:30 | DI.RAD_ITS ---
Exam(s) XR ANKLE LT COMPLETE EXAM: XR ANKLE LT COMPLETE CLINICAL HISTORY: medial ankle pain TECHNIQUE: 2D digital imaging was performed of the left ankle. Three images were obtained. AP, lat eral and oblique views were obtained. COMPARISON: No exams were available for comparison FINDINGS: BONES: No acute fracture is present. No bony destructive lesion is seen. JOINTS:The ankle mortise is normally aligned. SOFT TISSUE: Normal. IMPRESSION: No acute abnormality is identified. DATA REPOSITORY: RADIATION DOSE DELIVERED:
--- NOTE | 2022-12-23 13:32 | W.ED.GENAD ---
Discharge Plan Disposition Patient Disposition: Home Condition: Stable Discharge Details Clinical Impression: Left ankle sprain Primary Care Provider: Roseann Sainz ED Provider: Pasquale Doran Home Meds and New Rx's Prescriptions: Continued latanoprost 2.5 ML drops 1 drp OU BID Simbrinza 8 ML drops,suspension 1 drp OD BID citalopram [Celexa] 20 MG tablet 20 mg PO HS Qty: 90 clonazepam 0.5 MG tablet 0.5 tab PO BID PRNQty: 180 levothyroxine 75 MCG tablet 75 mcg PO DAILY Qty: 90 12RF dorzolamide [Trusopt] 10 ML drops 1 drp OD BID timolol maleate 0.5 % Drops 1 drp ophthalmic (eye) BID omeprazole 20 mg capsule,delayed release(DR/EC) 20 mg PO DAILY Qty: 30 3RF diclofenac sodium 50 mg Tablet,Delayed Release (Dr/Ec) 50 mg PO BID donepezil 10 mg tablet 10 mg PO DAILY potassium chloride 20 mEq tablet extended release 20 meq PO DAILY Label Comments: TAKE ONE TABLET BY MOUTH TWICE A DAY FOR 2 DAYS Discharge Instructions Additional Instructions: You may perform weightbearing activities as tolerated but please wear the brace during activity or walking for the next 1 to 2 weeks. If you are not improving please follow-up with your primary care provider for reassessment. You may continue to take iced-ktw-lxpzefz medications as needed for pain. If you develop any new or significant worsening of your symptoms return to the emergency department for reassessment. Referrals: Roseann Sainz [Primary Care Provider] - 2 weeks (If not improving follow-up with primary care provider) Medical Decision Making Patient presenting to the emergency department with significant other for chief complaint of left ankle pain. Patient does have history of memory impairment but states that she has had left ankle pain for the past couple days. Significant other states ankle pain just since this morning. Both of them deny any known injury trauma or fall. Physical exam shows medial ankle pain just inferior to the medial malleolus. Patient has full range of motion and is somewhat weightbearing. Exam is otherwise unremarkable. Suspect ankle sprain but given unknown injury will perform radiological imaging of the ankle. Assessment of the foot is unremarkable. Patient denies any need for pain medication pending results I reviewed radiological imaging and radiology interpretation that shows no acute fracture or dislocation. Patient placed in lace up ankle brace and instructed on weightbearing as tolerated activities along with return and follow-up precautions. I do feel that patient is safe to follow-up with primary care provider if not improving in the next couple weeks for reassessment and consideration of repeat imaging or referral to orthopedics as needed at that time. After discussion of diagnosis and plan of care patient has no further needs, questions, or concerns and states clear understanding to return to the emergency department for any worsening symptoms. This documentation was generated using [employer] system, please disregard any oddities of phrase or misspellings. Imaging Data Radiologic Study: Attestation: I personally reviewed and interpreted this imaging study as follows: Imaging: X-Ray Radiologist's impression: Exam: XR Left Ankle Exam date and time: 12/23/2022 1:05 PM Age: 82 years old Clinical indication: Pain; Ankle; Left TECHNIQUE: Imaging protocol: Radiologic exam of the Left ankle. 3image(s) are provided. Views: 3 or more views. COMPARISON: No prior relevant comparison study is currently available. FINDINGS: Bones/joints: There is some small plantar calcaneal spurring demonstrated. Osseous alignment is maintained.No displaced fracture or dislocation is appreciated.No cortical irregularity or periosteal reaction is appreciated. There is some slight cortical thickening suggestive of previous injury about the distal tibia medial malleolus tip. Soft tissues: There is slight soft tissue swelling overall. No radiopaque foreign body or subcutaneous emphysema is appreciated. IMPRESSION: There is slight soft tissue swelling with maintained osseous alignment.No fracture or dislocation is appreciated. HPI General Mode of arrival: ambulatory. Date/Time Provider Initiated Documentation: 12/23/22 12:08. Limitations to Documentation: no limitations. Information obtained by: patient, family and RN notes reviewed. History of Present Illness 82 year old F presents to the emergency department with the chief complaint of Left ankle pain, described as moderate, with intensity rated at 5. Quality is described as aching, and is localized to the left and lower extremity. Patient reports no radiation. Patient started experiencing this unknown and it has been constant. No relieving factors improve symptom(s), No exacerbating factors reported . Patient notes no other symptoms.. Patient did receive the following treatments prior to arrival, none Related Data Home Medications Medication Instructions Recorded Confirmed latanoprost 0.005 % eye drops 1 drp OU BID 01/27/13 12/23/22 brinzolamide 1 %-brimonidine 0.2 % 1 drp OD BID 01/06/16 12/23/22 eye drops,suspension (Simbrinza) dorzolamide 2 % eye drops (Trusopt) 1 drp OD BID 08/29/16 12/23/22 citalopram 20 mg tablet (Celexa) 20 mg PO HS #90 tab-caps 06/11/17 12/23/22 clonazepam 0.5 mg tablet 0.5 tab PO BID PRN #180 tab-caps 10/08/17 12/23/22 levothyroxine 75 mcg tablet 75 mcg PO DAILY #90 tab-caps 11/06/17 12/23/22 timolol maleate 0.5 % eye drops 1 drp ophthalmic (eye) BID 02/20/19 12/23/22 omeprazole 20 mg capsule,delayed 20 mg PO DAILY #30 caps 04/08/19 12/23/22 release diclofenac sodium 50 mg 50 mg PO BID 01/04/20 12/23/22 tablet,delayed release donepezil 10 mg tablet 10 mg PO DAILY 12/23/22 12/23/22 potassium chloride 20 mEq 20 meq PO DAILY 12/23/22 12/23/22 tablet,extended release Previous Rx's Medication Instructions Recorded levothyroxine 75 mcg tablet 75 mcg PO DAILY #90 tab-caps 11/06/17 omeprazole 20 mg capsule,delayed 20 mg PO DAILY #30 caps 04/08/19 release Allergies Allergy/AdvReac Type Severity Reaction Status Date / Time Penicillins Allergy Severe Anaphalaxis Unverified 12/23/22 12:18 codeine AdvReac Hallucinati Unverified 12/23/22 12:18 ons lisinopril AdvReac Cough Unverified 12/23/22 12:18 morphine AdvReac pt doesn't Unverified 12/23/22 12:18 tolerate well General Stated Complaint: Orthopedic KATIUSKA: 4 Review of Systems Narrative: 6 systems reviewed and unremarkable except what is marked below. Musculoskeletal Musculoskeletal: Reports as per HPI, Reports arthralgias, Denies joint swelling, Denies limited range of motion, Denies numbness and Denies tingling Integumentary/Breasts Skin/Breast: Denies erythema and Denies rash Neurologic Neurologic: Denies numbness and Denies tingling PFSH All Active Problems Bursitis (Acute) Left ankle sprain (Acute) Gastritis (Acute) Esophagitis (Acute) Schatzki's ring of distal esophagus (Acute) Colorectal polyps (Acute) S/P colonoscopy (Acute ~04/08/19) 2012-Tubular adenoma Hypertensive urgency, malignant (Acute) S/P laparoscopic cholecystectomy (Acute) Esophageal thickening (Acute) Encounter for screening colonoscopy (Acute) History of esophagogastroduodenoscopy (EGD) (Chronic ~04/08/19) 2008- mild gastritis Medical History Anxiety Asthma Dysthymic disorder GERD (gastroesophageal reflux disease) Glaucoma Hyperlipidemia Hypertension Hypothyroidism Lumbar radiculopathy Neoplasm of skin Surgical History Biopsy of breast (~1999) Cholecystectomy 01/28/16 EGD - MAC (~2004) Fracture, Open Treatment (~12/2006) [facility];LEFT; TANGELA/FEMUR Hysterectomy, Laproscopic (~1989) COMPLETE Oophrectomy, Both Repair of inguinal hernia Family History Mother Essential hypertension Personal history of malignant neoplasm BREAST Father Depression Heart disease Angina Pectoris Sister Diabetes Essential hypertension Alzheimer disease Asthma Grandfather No problems noted. Grandfather Asthma Grandmother No problems noted. Grandmother No problems noted. Son No problems noted. Daughter Neoplasm Daughter Depression Social History Smoking/Tobacco Use Status: Former Tobacco Use Smoking risk assessment performed?: Yes Alcohol Intake: never Drug use: Never Substance use type: does not use Do you feel safe at home: Yes Do you feel safe in your relationship?: Yes Exam Const General: cooperative, no acute distress and not ill appearing Orientation: alert and awake HENMT Mouth: moist mucous membranes Resp Effort & Inspection: normal respiratory effort, able to speak in complete sentences and no respiratory distress Cardio Rate: regular rate Rhythm: regular rhythm Pulses: normal peripheral pulses Skin General skin exam: no rashes or lesions noted Neuro General: patient alert, patient awake, patient oriented x3, moves all extremities and no focal motor deficits Sensory Exam: no sensory deficits noted Extrem General: normal exam except as noted Left lower extremity: lower leg Details: normal to inspection; no tenderness and no localized swelling, ankle Details: normal to inspection, tenderness Location: of the medial malleolus, no edema and abnormal ROM Details: pain with active ROM, pain with passive ROM and with range as follows (full); no swelling, no abrasions, no lacerations, no ecchymosis and no crepitus and foot Details: normal capillary refill and normal to inspection; no tenderness Course Vital Signs Vital signs: Vital Signs Pulse 69 12/23/22 12:13 Respiratory Rate 16 12/23/22 12:13 Blood Pressure 152/68 H 12/23/22 12:13 Pulse Oximetry 95 12/23/22 12:13 Pulse 69 12/23/22 12:13 Respiratory Rate 16 12/23/22 12:13 Respiratory Effort Non-Labored 12/23/22 12:19 Blood Pressure 152/68 H 12/23/22 12:13 Blood Pressure Position Sitting 12/23/22 12:13 Pulse Oximetry 95 12/23/22 12:13 Oxygen Delivery Method Room Air 12/23/22 12:13 Oxygen Flow Rate 0 12/23/22 12:13
== END 2022-12-23 13:56 | disposition home or self-care (01) ==
PROVIDERS: Emergency Provider Nurse Practitioner Family; PCP Family Medicine
DX: S93.402A Sprain of unspecified ligament of left ankle, initial encounter (principal); J45.909 Unspecified asthma, uncomplicated; I10 Essential (primary) hypertension; X58.XXXA Exposure to other specified factors, initial encounter; Y99.8 Other external cause status
CPT/HCPCS: 99282; 73610

== ENCOUNTER 2023-03-07 22:13 | Outpatient (REF) | payer MEDICARE, SELFPAY ==
[2023-03-07 22:01] LABS: Abs Immature Grans 0.02 10^3/uL (0.0-0.06); Absolute Basophil Count 0.04 10^3/uL (0.0-0.2); Absolute Eosinophil Count 0.12 10^3/uL (0.0-0.7); Absolute Lymphocyte Count 1.92 10^3/uL (1.2-3.4); Absolute Monocyte Count 0.53 10^3/uL (0.1-0.8); Absolute Neutrophil Count 4.58 10^3/uL (1.2-6.7); Basophils % 0.6; Eosinophils % 1.7; HCT 47.1 % (36.0-46.0); HGB 15.9 g/dL (11.2-15.7); Immature Grans % 0.3; Lymphocytes % 26.6; MCH 30.1 pg (27.0-33.0); MCHC 33.8 % (32.0-36.0); MCV 89 fL (80-95); MPV 11.1 fL (8.0-11.0); Monocytes % 7.4; Neutrophils % 63.4; Platelet Count 236 10^3/uL (130-400); RBC 5.28 10^6/uL (3.93-5.22); RDW 13.5 % (11.7-14.6); RDW-SD 44.4 fL; WBC 7.21 10^3/uL (4.4-10.8)
[2023-03-07 22:29] LABS: ALT 20 U/L (14-59); AST 13 U/L (15-37); Albumin 3.7 g/dL (3.4-5.0); Alkaline Phosphatase 106 U/L (46-116); BUN 13 mg/dL (7-18); Bilirubin, Total 1.6 mg/dL (0.2-1.0); CREATININE 0.7 mg/dL (0.55-1.02); Calcium 9.6 mg/dL (8.5-10.1); Chloride 104 mmol/L (98-107); Estimated GFR 85.76 (mL/min/1.73m2); Glucose 109 mg/dL (74-106); Potassium 3.7 mmol/L (3.5-5.1); Sodium 142 mmol/L (136-145); TSH (W/Ref FT4) 1.11 uIU/mL (0.36-3.74); Total Protein 6.6 g/dL (6.4-8.2)
== END 2023-03-07 22:14 | disposition home or self-care (01) ==
LOC: NCHCN 22:13
PROVIDERS: PCP Family Medicine; Visit Provider Family Medicine
DX: F03.90 Unspecified dementia, unspecified severity, without behavioral disturbance, psychotic disturbance, mood disturbance, and anxiety (principal); E87.6 Hypokalemia; E03.9 Hypothyroidism, unspecified
CPT/HCPCS: 80053; 84443; 85025

== ENCOUNTER 2023-04-13 14:17 | Emergency (ER) | payer MEDICARE, SELFPAY ==
[2023-04-13 14:27] VITALS: BP 226/115; PULSE 94; RESP 18; TEMP 36.3; O2SAT 96
[2023-04-13] MEDS: Prochlorperazine 5 MG TAB PO (14:58)
--- NOTE | 2023-04-13 15:27 | ED.GENADUL_ITS ---
Discharge Plan Disposition Patient Disposition: Home Discharge Details Clinical Impression: Nausea, COVID-19 Primary Care Provider: Roseann Sainz ED Provider: Rina Mejia Home Meds and New Rx's Prescriptions: New prochlorperazine maleate [Compazine] 5 mg tablet 5 mg PO TID PRNQty: 14 0RF Continued latanoprost 2.5 ML drops 1 drp OU BID Simbrinza 8 ML drops,suspension 1 drp OD BID citalopram [Celexa] 20 MG tablet 20 mg PO HS Qty: 90 clonazepam 0.5 MG tablet 0.5 tab PO BID PRNQty: 180 levothyroxine 75 MCG tablet 75 mcg PO DAILY Qty: 90 12RF dorzolamide [Trusopt] 10 ML drops 1 drp OD BID timolol maleate 0.5 % Drops 1 drp ophthalmic (eye) BID omeprazole 20 mg capsule,delayed release(DR/EC) 20 mg PO DAILY Qty: 30 3RF diclofenac sodium 50 mg Tablet,Delayed Release (Dr/Ec) 50 mg PO BID donepezil 10 mg tablet 10 mg PO DAILY potassium chloride 20 mEq tablet extended release 20 meq PO DAILY Patient Comments: TAKE ONE TABLET BY MOUTH TWICE A DAY FOR 2 DAYS Discharge Instructions Instructions: Acute Nausea and Vomiting (ED), Viral Syndrome (ED) Additional Instructions: Compazine as needed for nausea and vomiting [place], marielle anson, rest Return earlier with new or worsening complaints Referrals: Roseann Sainz [Primary Care Provider] - Discharge Data Discharge Date/Time-TO BE ENTERED AT DEPARTURE: 04/13/23 18:20 Medical Decision Making Patient presents for COVID-19 diagnosis with nausea and concern for dehydration She is alert and oriented, her vitals are stable She received Compazine and is now able to tolerate p.o. and requesting discharge home vitals stable, tolerating po return precautions reviewed and pt expressed understanding HPI General Date/Time Provider Initiated Documentation: 04/13/23 14:36 . HPI Narrative: This 82-year-old female presents with report of COVID diagnosis, here with nausea in the absence of vomiting. Has been was concerned she is dehydrated as she has had decreased interest in eating and drinking. Patient denies any pain complaints, chest pain, shortness of breath, or any additional complaints at this time. She was reportedly diagnosed 2 days ago with COVID-19 and started on Paxlovid yesterday. Related Data Home Medications Medication Instructions Recorded Confirmed latanoprost 0.005 % eye drops 1 drp OU BID 01/27/13 04/13/23 brinzolamide 1 %-brimonidine 0.2 % 1 drp OD BID 01/06/16 04/13/23 eye drops,suspension (Simbrinza) dorzolamide 2 % eye drops (Trusopt) 1 drp OD BID 08/29/16 04/13/23 citalopram 20 mg tablet (Celexa) 20 mg PO HS #90 tab-caps 06/11/17 04/13/23 clonazepam 0.5 mg tablet 0.5 tab PO BID PRN #180 tab-caps 10/08/17 04/13/23 levothyroxine 75 mcg tablet 75 mcg PO DAILY #90 tab-caps 11/06/17 04/13/23 timolol maleate 0.5 % eye drops 1 drp ophthalmic (eye) BID 02/20/19 04/13/23 omeprazole 20 mg capsule,delayed 20 mg PO DAILY #30 caps 04/08/19 04/13/23 release diclofenac sodium 50 mg 50 mg PO BID 01/04/20 04/13/23 tablet,delayed release donepezil 10 mg tablet 10 mg PO DAILY 12/23/22 04/13/23 potassium chloride 20 mEq 20 meq PO DAILY 12/23/22 04/13/23 tablet,extended release prochlorperazine maleate 5 mg 5 mg PO TID PRN #14 tabs 04/13/23 tablet (Compazine) Previous Rx's Medication Instructions Recorded levothyroxine 75 mcg tablet 75 mcg PO DAILY #90 tab-caps 11/06/17 omeprazole 20 mg capsule,delayed 20 mg PO DAILY #30 caps 04/08/19 release prochlorperazine maleate 5 mg 5 mg PO TID PRN #14 tabs 04/13/23 tablet (Compazine) Allergies Allergy/AdvReac Type Severity Reaction Status Date / Time Penicillins Allergy Severe Anaphalaxis Unverified 04/13/23 14:30 codeine AdvReac Hallucinati Unverified 04/13/23 14:30 ons lisinopril AdvReac Cough Unverified 04/13/23 14:30 morphine AdvReac pt doesn't Unverified 04/13/23 14:30 tolerate well General Stated Complaint: [facility] KATIUSKA: 3 PFSH All Active Problems Bursitis (Acute) Nausea (Acute) COVID-19 (Acute) Gastritis (Acute) Esophagitis (Acute) Schatzki's ring of distal esophagus (Acute) Colorectal polyps (Acute) S/P colonoscopy (Acute ~04/08/19) 2012-Tubular adenoma Hypertensive urgency, malignant (Acute) S/P laparoscopic cholecystectomy (Acute) Esophageal thickening (Acute) Encounter for screening colonoscopy (Acute) History of esophagogastroduodenoscopy (EGD) (Chronic ~04/08/19) 2008- mild gastritis Medical History Anxiety Asthma Dysthymic disorder GERD (gastroesophageal reflux disease) Glaucoma Hyperlipidemia Hypertension Hypothyroidism Lumbar radiculopathy Neoplasm of skin Surgical History Biopsy of breast (~1999) Cholecystectomy 01/28/16 EGD - MAC (~2004) Fracture, Open Treatment (~12/2006) [facility];LEFT; TANGELA/FEMUR Hysterectomy, Laproscopic (~1989) COMPLETE Oophrectomy, Both Repair of inguinal hernia Family History Mother Essential hypertension Personal history of malignant neoplasm BREAST Father Depression Heart disease Angina Pectoris Sister Diabetes Essential hypertension Alzheimer disease Asthma Grandfather No problems noted. Grandfather Asthma Grandmother No problems noted. Grandmother No problems noted. Son No problems noted. Daughter Neoplasm Daughter Depression Social History Smoking/Tobacco Use Status: Former Tobacco Use Smoking risk assessment performed?: Yes Alcohol Intake: never Drug use: Never Substance use type: does not use Do you feel safe at home: Yes Do you feel safe in your relationship?: Yes Exam Narrative Exam Narrative: Patient ambulatory, calm, cooperative, no acute distress, moist mucous membranes lungs clear to auscultation, cardiac rate rhythm regular Course Vital Signs Vital signs: Vital Signs Temperature 36.3 C L 04/13/23 14:27 Pulse 94 H 04/13/23 14:27 Respiratory Rate 18 04/13/23 14:27 Blood Pressure 226/115 H 04/13/23 14:27 Pulse Oximetry 96 04/13/23 14:27 Temperature 36.3 C L 04/13/23 14:27 Temperature Source Temporal Artery Scan 04/13/23 14:27 Pulse 94 H 04/13/23 14:27 Respiratory Rate 18 04/13/23 14:27 Respiratory Effort Non-Labored, Short of Breath 04/13/23 14:29 Blood Pressure 226/115 H 04/13/23 14:27 Blood Pressure Position Sitting 04/13/23 14:27 Pulse Oximetry 96 04/13/23 14:27 Oxygen Delivery Method Room Air 04/13/23 14:27 Oxygen Flow Rate 0 04/13/23 14:27 Pain Level 0 04/13/23 14:27
[2023-04-13 15:38] VITALS: BP 163/75; PULSE 76; RESP 18; O2SAT 98
[2023-04-13 15:39] VITALS: RESP 18
== END 2023-04-13 18:20 | disposition home or self-care (01) ==
PROVIDERS: Emergency Provider Physician Assistant; PCP Family Medicine
DX: U07.1 COVID-19 (principal); R11.2 Nausea with vomiting, unspecified
CPT/HCPCS: 99283

== ENCOUNTER 2023-07-25 14:46 | Outpatient (CLI) | payer MEDICARE, SELFPAY ==
--- NOTE | 2023-07-25 14:53 | DI.RAD_ITS ---
Exam(s) XR WRIST LT COMPLETE EXAM: XR WRIST LT COMPLETE CLINICAL HISTORY: pain. TECHNIQUE: 2D digital imaging was performed of the left wrist. Three images were obtained. Scaphoi d, PA, oblique and lateral views were obtained. COMPARISON: No exams were available for comparison FINDINGS: BONES: No acute fracture is present. No bony destructive lesion is seen. The bones are osteopenic. T here is a well corticated osseous density at the tip of the ulnar styloid process which appears old. JOINTS: The carpal bones are normally aligned. The joint spaces are well maintained. SOFT TISSUE: Normal. IMPRESSION: No acute abnormality. DATA REPOSITORY: RADIATION DOSE DELIVERED:
== END 2023-07-25 14:47 | disposition home or self-care (01) ==
LOC: DIORS 14:46
PROVIDERS: PCP Family Medicine; Referring Provider Family Medicine; Visit Provider Student in an Organized Health Care Education/Training Program
DX: M25.532 Pain in left wrist (principal); M65.342 Trigger finger, left ring finger
CPT/HCPCS: 99204; 99213; 73110

== ENCOUNTER 2023-07-27 08:56 | Day surgery (SDC) | payer MEDICARE, SELFPAY ==
--- NOTE | 2023-07-27 07:12 | W.PM.OP ---
Date of service: 07/27/23 Time of Service: 12:00 Operative Note Operative Note DATE OF PROCEDURE: 07/27/23 PRE-OP DIAGNOSIS: Left ring finger trigger finger PROCEDURE: Left ring finger trigger release, CPT# 13968 SURGEON: Tyler Farr [employer]: None None ANESTHESIA TYPE: Local By Surgeon Refer to Anesthesia Record ESTIMATED BLOOD LOSS: 1 TOURNIQUET TIME: 0 COMPLICATIONS: None Patient was transported to: same day Patient's condition: stable Indications: Please see complete medical record for details. Procedure Description: In the procedure room, the patient was positioned supine on the stretcher. All bony prominences were padded. Preoperative antibiotics were omitted. The correct patient, procedure, and side of the procedure were all verified prior to beginning. Local anesthesia was induced about the site with 10cc of 1% lidocaine containing epinephrine buffered with 1 cc of sodium bicarbonate. The Left hand was prepped and draped in the usual sterile fashion. Proper analgesia was confirmed. A small volar longitudinal approach was made overlying the Ring finger MCP joint. Soft tissues were swept to the sides and retracted to expose the A1 lawrence. The release was started centrally with a knife and completed at the proximal and distal margins with tenotomy scissors. Care was taken to protect the flexor tendons. The tendons were inspected and showed some mild bulbous degeneration, but no significant tearing. Appropriate flexor tendon excursion was confirmed. 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 The small incision was irrigated and then dried. Hemostasis was appropriate. The incision was closed using 3-0 nylon in a horizontal mattress fashion. Xeroform was applied followed by gauze and the hand was gently compressed with an Raoul bandage. The patient tolerated local anesthesia without complication and was transferred out of the operating room in a stable condition.
--- NOTE | 2023-07-27 07:13 | W.PM.DSUDISC ---
Date of service: 07/27/23 Time of Service: 11:00 Discharge Plan Disposition Patient Disposition: Home Condition: Stable Discharge Details Attending Provider: Tyler Farr Primary Care Provider: Roseann Sainz Home Meds and New Rx's Prescriptions: Continued latanoprost 2.5 ML drops 1 drp OU BID Simbrinza 8 ML drops,suspension 1 drp OD BID citalopram [Celexa] 20 MG tablet 20 mg PO HS Qty: 90 clonazepam 0.5 MG tablet 0.5 tab PO BID PRNQty: 180 levothyroxine 75 MCG tablet 75 mcg PO DAILY Qty: 90 12RF dorzolamide [Trusopt] 10 ML drops 1 drp OD BID timolol maleate 0.5 % Drops 1 drp ophthalmic (eye) BID omeprazole 20 mg capsule,delayed release(DR/EC) 20 mg PO DAILY Qty: 30 3RF prochlorperazine maleate [Compazine] 5 mg tablet 5 mg PO TID PRNQty: 14 0RF diclofenac sodium 50 mg Tablet,Delayed Release (Dr/Ec) 50 mg PO BID donepezil 10 mg tablet 10 mg PO DAILY potassium chloride 20 mEq tablet extended release 20 meq PO DAILY Patient Comments: TAKE ONE TABLET BY MOUTH TWICE A DAY FOR 2 DAYS Discharge Instructions Additional Instructions: Surgery: Left ring finger trigger release Activity: Protect hand for a few weeks. Gently increase finger motion and hand gripping to prevent stiffness. Recommend elevation to minimize swelling and discomfort. Prescriptions: None Resume home medicines, use [id number] Tylenol (acetaminophen) as needed for mild pain and ibuprofen (Motrin) or naproxen (Aleve) as needed for moderate to severe pain and swelling. Dressings: Leave dressing in place for 3 days. May then remove and leave open to air or cover incision with Band-Aid. May get wet after 5 days. Follow-up: 10-[address] Farr Please call the office during business hours with any questions or concerns. Discharge Orders Discharge Orders: Discharge Order (Routine); Ordered 07/27/23 Ordered By: Tyler Farr DS: Diagnosis Discharge Diagnosis (1) Trigger finger, left ring finger: Status: Acute
[2023-07-27 09:21] VITALS: BP 156/73; PULSE 70; RESP 16; TEMP 36.9; O2SAT 97
[2023-07-27] MEDS: Sodium Bicarbonate 50 MEQ/50 ML VIAL (10:08)
[2023-07-27] MEDS: Lidocaine 1% Pres-Free W/EPI 1/200,000 30 ML VIAL (10:08)
[2023-07-27 10:38] VITALS: BP 175/73; PULSE 69; RESP 16; TEMP 36.3; O2SAT 98
== END 2023-07-27 11:11 | disposition home or self-care (01) ==
PROVIDERS: PCP Family Medicine; Visit Provider Student in an Organized Health Care Education/Training Program
PROC: (CPT 26055; principal; 2023-07-27 10:15)
DX: M65.342 Trigger finger, left ring finger (principal)
CPT/HCPCS: 26055

== ENCOUNTER → 2023-08-08 13:54 | Outpatient (BNVA) | payer MEDICARE, SELFPAY | PROVIDERS: PCP Family Medicine; Referring Provider Family Medicine | DX: Z47.89 Encounter for other orthopedic aftercare (principal); M65.342 Trigger finger, left ring finger ==

== ENCOUNTER 2025-03-20 22:27 | Outpatient (REF) | payer MEDICARE, SELFPAY ==
[2025-03-20 21:49] LABS: HCT 46.6 % (36.0-46.0); HGB 15.2 g/dL (11.2-15.7); MCH 30.1 pg (27.0-33.0); MCHC 32.6 % (32.0-36.0); MCV 92 fL (80-95); Platelet Count 205 10^3/uL (130-400); RBC 5.05 10^6/uL (3.93-5.22); RDW-SD 48.3 fL; WBC 6.83 10^3/uL (4.4-10.8)
[2025-03-20 22:51] LABS: ALT 22 U/L (14-59); AST 17 U/L (15-37); Albumin 3.4 g/dL (3.4-5.0); Alkaline Phosphatase 102 U/L (46-116); Anion Gap 7.9 mmol/L (3-11); BUN 19 mg/dL (7-18); Bilirubin, Total 1.9 mg/dL (0.2-1.0); CO2 33.1 mmol/L (21.0-32.0); CREATININE 0.7 mg/dL (0.55-1.02); Calcium 9.3 mg/dL (8.5-10.1); Chloride 102 mmol/L (98-107); Glucose 79 mg/dL (74-106); Potassium 3.8 mmol/L (3.5-5.1); Sodium 143 mmol/L (136-145); TSH (W/Ref FT4) 0.68 uIU/mL (0.36-3.74)
== END 2025-03-20 22:28 | disposition home or self-care (01) ==
LOC: NCHCN 22:27
PROVIDERS: PCP Family Medicine; Visit Provider Family Medicine
DX: E03.9 Hypothyroidism, unspecified (principal)
CPT/HCPCS: 80053; 85027; 84443

== ENCOUNTER 2025-04-02 14:50 | Outpatient (CLI) | payer MEDICARE, SELFPAY ==
--- NOTE | 2025-04-02 | DI.RAD_ITS ---
Exam(s) XR SHOULDER LT COMPLETE 2+V XR HUMERUS LT XR CLAVICLE LT EXAM: XR SHOULDER LT COMPLETE 2+V and XR clavicle LT and XR humerus LT CLINICAL HISTORY: MAIN LEFT SHOULDER M25.512. TECHNIQUE: 2D digital imaging was performed of the left clavicle, humerus and shoulder. Eight image s were obtained. Views were obtained. COMPARISON: CR XR CHEST 2V PA LATERAL from 08/18/2019 FINDINGS: BONES: There is an acute nondisplaced fracture of the lateral aspect of the clavicle. It does not ap pear to extend into the acromioclavicular joint. No bony destructive lesion is seen. No other fractu re or dislocation is seen. JOINTS: No dislocation present. Mild degenerative changes of the acromioclavicular joint are noted. The glenohumeral joint is unremarkable. The visualized portions of the elbow appear unremarkable. SOFT TISSUE: Normal. IMPRESSION: Nondisplaced fracture of the lateral aspect of the left clavicle. DATA REPOSITORY: RADIATION DOSE DELIVERED:
== END 2025-04-02 15:10 ==
PROVIDERS: PCP Family Medicine; Visit Provider Physician Assistant Medical
DX: S42.035A Nondisplaced fracture of lateral end of left clavicle, initial encounter for closed fracture (principal); X58.XXXA Exposure to other specified factors, initial encounter
CPT/HCPCS: 73000; 73030; 73060